=== PATIENT | male | born 1985 | race Caucasian/White ===

== ENCOUNTER 2017-11-20 16:29 | Emergency (ER) | payer OTHER ==
[~2017-11-20] VITALS: Ht 177.8 cm; Wt 108.9 kg
[~2017-11-20 16:29] MED LIST: KEFLEX500 MG PO
[2017-11-20 16:37] VITALS: BP 150/90
[2017-11-20] MEDS ORDERED: MOBIC15 MG PO (16:40)
[2017-11-20 17:12] LABS: URINE BILIRUBIN NEGATIVE (Negative); URINE BLOOD NEGATIVE (Negative); URINE CLARITY CLEAR; URINE COLOR YELLOW; URINE GLUCOSE-RANDOM NEGATIVE (Negative); URINE KETONES NEGATIVE (Negative); URINE LEUKOCYTES-REFLEX NEGATIVE (Negative); URINE NITRITE-REFLEX NEGATIVE (Negative); URINE PROTEIN NEGATIVE (Negative); URINE SPECIFIC GRAVITY 1.015 (1.005-1.030); URINE UROBILINOGEN 0.2 E.U./dl (0.2-1.0)
[2017-11-20] MEDS ORDERED: TYLENOL EXTRA500 MG PO (17:20)
[2017-11-20] MEDS ORDERED: TRAMADOL 50 MG50 MG PO (17:20)
[2017-11-20] MEDS ORDERED: ROBAXIN 750 MG750 M1 PO (17:21)
== END 2017-11-20 17:47 | disposition home or self-care (01) ==
LOC: M.ERS 16:29
PROVIDERS: Physician Assistant
DX: M54.5 Low back pain (principal); Z91.010 Allergy to peanuts

== ENCOUNTER 2020-01-08 19:18 | Emergency (ER) | payer BC ==
[~2020-01-08] VITALS: Ht 177.8 cm; Wt 106.6 kg
[~2020-01-08 19:18] MED LIST changes: +MOBIC15 MG PO; +ROBAXIN 750 MG750 M1 PO; +TRAMADOL 50 MG50 MG PO; +TYLENOL EXTRA500 MG PO
[2020-01-08] MEDS ORDERED: LEXAPRO 10 MG T10 M1 PO (19:31)
[2020-01-08] MEDS ORDERED: ATACAND8 MG PO (19:33)
[2020-01-08] MEDS ORDERED: LIPITOR 20 MG T20 M1 PO (19:34)
[2020-01-08 19:36] LABS: URINE BILIRUBIN NEGATIVE (Negative); URINE BLOOD NEGATIVE (Negative); URINE CLARITY CLEAR; URINE COLOR YELLOW; URINE GLUCOSE-RANDOM NEGATIVE (Negative); URINE KETONES NEGATIVE (Negative); URINE LEUKOCYTES-REFLEX NEGATIVE (Negative); URINE NITRITE-REFLEX NEGATIVE (Negative); URINE PROTEIN NEGATIVE (Negative); URINE UROBILINOGEN 0.2 E.U./dl (0.2-1.0)
[2020-01-08] MEDS ORDERED: CIPROFLOXACIN500 M1 PO (21:02)
[2020-01-08] MEDS ORDERED: HYDROCODON-ACE1 EAC8 PO (21:02)
[2020-01-08] MEDS ORDERED: FLAGYL500 M1 PO (21:02)
[2020-01-08] MEDS ORDERED: ZOFRAN ODT4 MG PO (21:02)
[2020-01-08 21:10] VITALS: BP 125/61
== END 2020-01-08 21:10 | disposition home or self-care (01) ==
LOC: M.ERS 19:18
PROVIDERS: Emergency Medicine
DX: K57.92 Diverticulitis of intestine, part unspecified, without perforation or abscess without bleeding (principal); I10 Essential (primary) hypertension; F41.9 Anxiety disorder, unspecified; Z91.010 Allergy to peanuts

== ENCOUNTER → 2021-03-14 | Emergency (ER) | payer BC ==
[~2021-03-14] VITALS: Ht 177.8 cm; Wt 113.4 kg
[~2021-03-14] MED LIST changes: +ATACAND8 MG PO; +CIPROFLOXACIN500 M1 PO; +FLAGYL500 M1 PO; +HYDROCODON-ACE1 EAC8 PO; +LEXAPRO 10 MG T10 M1 PO; +LIPITOR 20 MG T20 M1 PO; +MEDROLDOSEPACK PO; +ZOFRAN ODT4 MG PO
[2021-03-14 21:52] VITALS: BP 139/88
== END ==
LOC: M.ERS 20:53
DX: M54.5 Low back pain (principal); I10 Essential (primary) hypertension; F41.9 Anxiety disorder, unspecified; E78.00 Pure hypercholesterolemia, unspecified; Z79.899 Other long term (current) drug therapy; Z91.010 Allergy to peanuts